=== PATIENT | male | born 1940 | race Caucasian/White ===

== ENCOUNTER 2017-03-24 07:35 | Day surgery (SDC) | payer MEDICARE, OTHER ==
[2017-03-24 08:13] LABS: HEMOGLOBIN 15.4 g/dL (14.1-18.0); LYMPH # 2.7 K/mm3 (0.7-4.5); LYMPH % 38.9 % (10-50)
[2017-03-24 08:18] LABS: BUN 19 mg/dL (7-18); GFR (ESTIMATED) 40 ML/MIN (>60)
--- NOTE | 2017-03-24 10:22 | RADIOLOGY REPORT PS360 ---
CARDIAC CATHETERIZATION DATE OF CATHETERIZATION:03/24/2017 9:14 AM PROCEDURES: 1. Left heart catheterization 2. Left ventriculogram 3. Selective coronary angiogram 4. Bilateral selective renal angiography 5. Drug-eluting stent deployment to the proximal mid distal codominant right coronary artery INDICATION FOR TEST: 1. Angina pectoris class III 2. Calcium score 410 3. Coronary artery disease 4. Chronic renal failure's stage III with a creatinine of 1.7 5. Suspect renal artery stenosis 6. Hypertension/renal vascular hypertension Informed consent was obtained prior to the procedure. COMPLICATIONS: None ESTIMATED BLOOD LOSS: Less than 10 ml. TECHNIQUE: One percent lidocaine was used to anesthetize the right groin. The right femoral artery was accessed via the Seldinger technique. A 4-Bengali sheath was placed in the right femoral artery. The JL-5 and JR-4 catheter was also used to perform left heart catheterization left ventriculogram and selective coronary angiogram. The JR4 catheter was used to selectively intubate each renal artery after it was found patient had severe coronary artery disease. The likelihood of renal artery stenosis was high and patient had stage III chronic kidney disease. At the end of the diagnostic angiogram patient was given 7000 units of heparin intravenously followed by Brilinta 180 mg orally. The JR4 catheter with sideholes was used intubate the right coronary artery and a choice PT wire was placed distally. The ACT was out of range. A 2.5 x 38 mm resolute Martir stent was deployed at 20 rekha reducing the stenosis. An additional 2.5 x 22 mm resolute stent was placed proximal to this yet still overlapping the first stent and also deployed at 20 rekha. The balloon was put between the 2 and postdilated at 20 rekha. 800 mcg of nitroglycerin was administered intraarterially. After achieving excellent angiographic results with YAKOV-3 flow before and after the procedure the apparatus was removed the groin is reprepped gloves were changed sheath was removed good hemostasis was achieved using Perclose device patient was transferred to the postop holding area in stable condition ANGIOGRAPHIC RESULTS: 1. The left main artery normal 2. The left anterior descending artery has a proximal concentric 70-80% stenosis followed by mid vessel 40% concentric stenosis 3. The circumflex artery is a codominant vessel and has a proximal eccentric 80% stenosis with a mid vessel 50% stenosis in the terminal large obtuse marginal artery 4. The right coronary artery is a codominant vessel and has proximal 90% stenoses followed by to mid vessel 90% stenosis followed by an additional distal eccentric 80-90% stenosis 5. The JIMENEZ ventriculogram reveals normal 65% 6. The left ventricular end-diastolic pressure less than 10 mmHg 7. Right renal artery singular and normal 8. Left renal artery singular and normal IMPRESSION: 1. Severe three-vessel coronary artery disease as described above 2. Normal ejection fraction 3. Normal left ventricular end-diastolic pressure 4. Successful stenting of the proximal mid distal codominant right coronary artery severe disease reduced to 0% with 2 drug-eluting stents 5. Resistant severe stenosis in the proximal LAD and proximal codominant circumflex artery 6. Normal renal arteries 7. Chronic kidney disease stage III PLAN: 1. Brilinta and aspirin 2. LDL less than 55 3. Avoidance of tobacco products 4. Cardiac rehabilitation 5. Treatment of chronic kidney disease with disease modifying drug such as al inhibitors etc. 6. Because of patient's chronic renal failure a staged procedure must be performed. He'll be brought back to [facility] in 2 weeks and will undergo stenting of the proximal LAD and proximal codominant circumflex artery. It would not be safe to proceed given patient's severe kidney disease in the setting of already receiving significant amount of contrast
[2017-03-24 15:06] VITALS: BP 145/77
== END 2017-03-24 15:06 | disposition home or self-care (01) ==
LOC: CATHLAB 07:35
PROVIDERS: Internal Medicine
PROC: 4A023N7 Measurement of Cardiac Sampling and Pressure, Left Heart, Percutaneous Approach (ICD-10-PCS; principal; 2017-03-24)
PROC: B2111ZZ Fluoroscopy of Multiple Coronary Arteries using Low Osmolar Contrast (ICD-10-PCS; 2017-03-24)
PROC: B2151ZZ Fluoroscopy of Left Heart using Low Osmolar Contrast (ICD-10-PCS; 2017-03-24)
PROC: B4181ZZ Fluoroscopy of Bilateral Renal Arteries using Low Osmolar Contrast (ICD-10-PCS; 2017-03-24)
PROC: 027034Z Dilation of Coronary Artery, One Artery with Drug-eluting Intraluminal Device, Percutaneous Approach (ICD-10-PCS; 2017-03-24)
DX: I25.119 Atherosclerotic heart disease of native coronary artery with unspecified angina pectoris (principal); I12.9 Hypertensive chronic kidney disease with stage 1 through stage 4 chronic kidney disease, or unspecified chronic kidney disease; N18.3 Chronic kidney disease, stage 3 (moderate); R07.9 Chest pain, unspecified

== ENCOUNTER 2017-04-17 07:49 | Day surgery (SDC) | payer MEDICARE, OTHER ==
[2017-04-17 08:20] LABS: HEMOGLOBIN 15.2 g/dL (14.1-18.0); LYMPH # 2.5 K/mm3 (0.7-4.5); LYMPH % 32.4 % (10-50)
[2017-04-17 09:10] LABS: BUN 14 mg/dL (7-18)
[2017-04-17 09:13] LABS: GFR (ESTIMATED) 40 ML/MIN (>60)
--- NOTE | 2017-04-17 13:35 | RADIOLOGY REPORT PS360 ---
CARDIAC CATHETERIZATION DATE OF CATHETERIZATION:04/17/2017 10:26 AM PROCEDURES: CARDIAC CATHETERIZATION DATE OF CATHETERIZATION:04/17/2017 10:27 AM PROCEDURES: CARDIAC CATHETERIZATION DATE OF CATHETERIZATION:04/17/2017 10:27 AM PROCEDURES: 1. Drug-eluting stent deployment to the proximal dominant circumflex artery 2. Drug-eluting stent deployment to the proximal and mid LAD INDICATION FOR TEST: 1. Three-vessel coronary artery disease 2. Scheduled staged procedure due to chronic kidney disease stage III 3. Coronary artery disease Informed consent was obtained prior to the procedure. COMPLICATIONS: None ESTIMATED BLOOD LOSS: Less than 10 ml. TECHNIQUE: One percent lidocaine used to anesthetize the right anterior aspect of the wrist. The right radial artery was accessed via the Seldinger technique. A 6 [place]ian sheath was placed in the right radial artery. 2.5 mg of verapamil, 800 mcg of nitroglycerin and 5000 U Heparin were given through the arterial sheath. An [employer] left guide catheter was used intubate the left main artery and a BMW wire was placed in the circumflex artery. Patient had artery received an additional 2000 units of intravenous heparin as well as his oral Brilinta earlier in the morning. ACT was out of range. A 2.5 x 22 mm resolute [place] stent was placed in the proximal circumflex artery and deployed at 22 rekha. A 2.75 x 8 mm noncompliant balloon was then placed in the middle of the stent and deployed at 22 rekha to post dilate. YAKOV-3 flow was present before and after the procedure with excellent angiographic results. The wire was in placed down the LAD and a 2.25 x 18 mm resolute Martir stent was deployed at 20 rekha. A small filling defect was present distal therefore a 2.25 x 8 mm resolute [place] stent was deployed at 18 rekha and then have balloon brought back and measures to 24 rekha. Prior to the 8 mm stent being deployed a 2.5 x 12 mm noncompliant balloon was taken at 22 rekha in the proximal LAD in order to post dilate. YAKOV-3 flow was present down the LAD before and after the procedure. At the end procedure the sheath was removed good hemostasis was achieved using TR banding patient was transferred to the postop holding area in stable condition IMPRESSION: 1. Successful stenting of the proximal dominant circumflex artery appear disease reduced to 0% with 1 drug-eluting stent 2. Successful stenting of the proximal and mid LAD severe disease reduced to less than 10% with 2 drug-eluting stents PLAN: 1. Brilinta and aspirin 2. LDL less than 55 3. Risk factor modification 4. Avoidance of tobacco products 5. Cardiac rehabilitation 6. Aggressive risk factor modification 1. 2. 3. 4. INDICATION FOR TEST: 1. 2. 3. Informed consent was obtained prior to the procedure. COMPLICATIONS: ESTIMATED BLOOD LOSS: Less than 10 ml. TECHNIQUE: One percent lidocaine was used to anesthetize the right groin. The right femoral artery was accessed via the Seldinger technique. A 4-Namibian sheath was placed in the right femoral artery. The JL-4 and JR-4 catheter was also used to perform left heart catheterization and left ventriculography. At the end of the procedure the patient was transferred to the post-op holding area in stable condition for arterial sheath removal. ANGIOGRAPHIC RESULTS: 1. The left main artery 2. The left anterior descending artery 3. The circumflex artery 4. The right coronary artery 5. The JIMENEZ ventriculogram reveals 6. The left ventricular end-diastolic pressure IMPRESSION: 1. coronary arteries. 2. 3. 4. 5. PLAN: 1. 2. 3. 1. 2. Left heart catheterization 3. Left ventriculogram 4. Selective coronary angiogram INDICATION FOR TEST: 1. 2. 3. Informed consent was obtained prior to the procedure. COMPLICATIONS: None ESTIMATED BLOOD LOSS: Less than 10 ml. TECHNIQUE: One percent lidocaine was used to anesthetize the right groin. The right femoral artery was accessed via the Seldinger technique. A 4-Namibian and 7 korean sheath was placed in the right femoral artery and vein respectfully. The JR-4 and JL-4 catheter was also used to perform left heart catheterization, left ventriculography and selective coronary angiogram. At the end of the procedure the patient was transferred to the post-op holding area in stable condition for arterial sheath removal. ANGIOGRAPHIC RESULTS: 1. The left main artery 2. The left anterior descending artery has 3. The circumflex artery is non dominant and has 4. The right coronary artery 5. The JIMENEZ ventriculogram reveals The left ventricular end-diastolic pressure HEMODYNAMICS: Right atrial pressure is mm Hg. Pulmonary arterial pressure is mm Hg. Pulmonary artery occlusion pressure is mm Hg. SATURATIONS: RA is %. PA is %. IMPRESSION: 1. coronary artery disease 2. 3. PLAN: 1. 2.
[2017-04-17 15:13] VITALS: BP 122/67
== END 2017-04-17 15:18 | disposition home or self-care (01) ==
LOC: CATHLAB 07:49
PROVIDERS: Internal Medicine
PROC: 027135Z Dilation of Coronary Artery, Two Arteries with Two Drug-eluting Intraluminal Devices, Percutaneous Approach (ICD-10-PCS; principal; 2017-04-17 09:45)
DX: I25.119 Atherosclerotic heart disease of native coronary artery with unspecified angina pectoris (principal); Z72.0 Tobacco use; N18.3 Chronic kidney disease, stage 3 (moderate); I12.9 Hypertensive chronic kidney disease with stage 1 through stage 4 chronic kidney disease, or unspecified chronic kidney disease; R06.09 Other forms of dyspnea; R00.2 Palpitations
CPT/HCPCS: C1725; C1769; C1876; J1644; Q9967